=== PATIENT | female | born 1935 | race Caucasian/White ===

== ENCOUNTER 2019-03-22 12:29 | Inpatient (IN) ==
[2019-03-22] MEDS ORDERED: XANAX PO ONE (13:04)
[2019-03-22 13:30] LABS: BASO# 0.01 X1000 (0.0-0.2); BASO% 0.2 % (0.0-0.8); EOS% 4.3 % (0.0-10.0); HEMATOCRIT 33.8 % (37.0-47.0); HEMOGLOBIN 10.7 g/dL (12.0-16.0); IMM GRAN# 0.01 X1000 (0.0-0.04); IMM GRAN% 0.2 % (0.0-0.5); LYMPH# 1.61 X1000 (1.2-3.4); LYMPH% 34.6 % (20.5-51.1); MCH 30.6 PG (27-31); MCHC 31.7 g/dL (33-37); MCV 96.6 FL (81-99); MONO# 0.51 X1000 (0.11-0.59); MPV 10.9 FL (7.4-10.4); NEUT# 2.31 X1000 (1.4-6.5); NEUT% 49.7 % (42.2-75.2); PLT 274 X1000 (130-400); WBC 4.65 X1000 (4.8-10.8)
--- NOTE | 2019-03-22 13:32 | PROVIDER DOCUMENTATION ---
This chart was entered by Louisa Portillo Scribe, acting as scribe for Camilo Bell MD. HPI-Respiratory General - General Chief Complaint: Shortness of Breath Stated Complaint: DIFFICULTY BREATHING Time Seen by Provider: 03/22/19 12:50 Source: patient Allergies/Adverse Reactions: Patient Allergies Allergy/AdvReac Type Severity Reaction Status Date / Time albuterol Allergy Unknown Unknown Verified 03/22/19 13:30 ciprofloxacin [From Cipro] Allergy Unknown Unknown Verified 03/22/19 13:30 ciprofloxacin HCl * Allergy Unknown Unknown Verified 03/22/19 13:30 [From Cipro] corn [[place]] Allergy Unknown Unknown Verified 03/22/19 13:30 erythromycin base Allergy Unknown Unknown Verified 03/22/19 13:30 [Erythromycin Base] milk Allergy Unknown Unknown Verified 03/22/19 13:30 Sulfa (Sulfonamide Allergy Unknown Unknown Verified 03/22/19 13:30 Antibiotics) [Sulfa(Sulfonamide Antibiotics)] Home Medications: Home Medication List Medication Instructions Recorded Confirmed Last Taken Type Apixaban [Eliquis] 5 mg PO DAILY 03/22/19 03/22/19 Unknown History Metoprolol [Lopressor] 25 mg PO DAILY 03/22/19 03/22/19 Unknown History Paroxetine HCl [Paroxetine ER] 25 mg PO DAILY 03/22/19 03/22/19 Unknown History Pioglitazone HCl 30 mg PO DAILY 03/22/19 03/22/19 03/22/19 History - History of Present Illness-Resp Nature of Presenting Problem: 83 year old white female with history of dementia, CAD, diabetes, chronic atrial fibrillation (currently on Eloquis) who presents with her daughter complaining of worsening SOB with orthopnea for past week. Denies chest pain. Pt lives with daughter who thinks pt is experiencing panic attacks. Pt ambulates with a walker and is unable to bend knees due to severe arthritis. Pt's daughter states that pt is experiencing panic attacks due to daughter wanting her to travel to [place] for a few weeks. Pt is feeling anxiety over telling daughter that she does not want to travel due to bad health. Noted to have episodes of bradycardia in 30's and PVCs in emergency department. Quality of Pain: reports: tightness Onset/Duration: reports: gradual Timing: reports: still present Associated Symptoms: reports: shortness of breath Review of Systems - Adult - REVIEW OF SYSTEMS - ADULT Constitutional: denies: chills, fever Eyes: reports: no symptoms reported Ears, Nose, Mouth & Throat: reports: no symptoms reported Cardiovascular: reports: edema, orthopnea Respiratory: reports: shortness of breath. denies: cough, wheezing Gastrointestinal: reports: no symptoms reported Genitourinary: reports: no symptoms reported Musculoskeletal: reports: joint pain (knees), joint swelling (knees) Integumentary: reports: no symptoms reported Neurological: reports: no symptoms reported Psychiatric: reports: anxiety, other (dementia) Endocrine: reports: no symptoms reported Hematologic/Lymphatic: reports: no symptoms reported Allergic/Immunologic: reports: no symptoms reported All Other Systems: Reviewed and Negative Past History - Adult - PAST MEDICAL HISTORY-ADULT Review of Records: reports: Old Records Reviewed, Nursing Assessment Review, Medications Reviewed, Social history reviewed & non-contributory. Major Childhood Illnesses: reports: denies history Cardiovascular: reports: arrhythmia (chronic atrial fibrillation), HTN, hyperlipidemia, [place] Neurological: reports: CVA, dementia Endocrine/Immune: reports: Diabetes - PRIOR SURGERIES/PROCEDURES Surgical/Procedure History: reports: appendectomy, other (lumpectomy) - IMMUNIZATION STATUS Childhood Immunizations: See Nurse Assessment Flu Vaccine: See Nurse Assessment - SOCIAL HISTORY Smoking: denies Physical Exam-General - PHYSICAL EXAM-ADULT Initial Vital Signs Reviewed: Yes - CONSTITUTIONAL General Appearance: alert, mild distress - EYES Eyes: PERRL/EOMI, pink conjunctivae - HEAD, EARS, NOSE, MOUTH & THROAT HENMT: normocephalic/atraumatic, moist mucous membranes, normal ENT inspection - NECK Neck: non-tender, normal inspection - RESPIRATORY Respiratory: lungs clear - CARDIOVASCULAR Cardiovascular: normal peripheral pulses, irregularly irregular - GASTROINTESTINAL (ABDOMEN) Abdominal Exam: soft - MUSCULOSKELETAL Back Exam: no CVA tenderness, no vertebral tenderness, swelling Extremity: tenderness (knees) Peripheral Pulses: radial (R): 2+, radial (L): 2+ - SKIN Integumentary: normal color, warm/dry - NEUROLOGIC Neurologic: grossly normal, no motor/sensory deficits - PSYCHIATRIC Psych/Mental Status: oriented x 3, anxious, other (demented) Progress - PLAN OF CARE/RESULTS Progress/Plan/Lab Results: Vital Signs - 8 hr 03/22/19 12:36 03/22/19 14:00 Temperature 97.9 F Pulse Rate 103 H 84 Respiratory Rate 20 26 H Blood Pressure 132/083 166/97 O2 Sat by Pulse Oximetry 96 94 L Laboratory Results - last 24 hr 03/22/19 03/22/19 03/22/19 13:15 13:15 13:15 WBC 4.65 L RBC 3.50 L Hgb 10.7 L Hct 33.8 L MCV 96.6 MCH 30.6 MCHC 31.7 L RDW Std Deviation 15.0 H Plt Count 274 MPV 10.9 H Immature Gran % (Auto) 0.2 Neut % (Auto) 49.7 Lymph % (Auto) 34.6 [place] % (Auto) 11.0 H Eos % (Auto) 4.3 Baso % (Auto) 0.2 Immature Gran # (Auto) 0.01 Neut # (Auto) 2.31 Lymph # (Auto) 1.61 [place] # (Auto) 0.51 Eos # (Auto) 0.20 Baso # (Auto) 0.01 D-Dimer, Quantitative 0.56 H Sodium Potassium Chloride Carbon Dioxide Anion Gap BUN Creatinine Estimated GFR/1.73 m2 BUN/Creatinine Ratio Glucose Calculated Osmolality Calcium Magnesium Total Bilirubin AST ALT Alkaline Phosphatase Troponin T < 0.010 [id number] Pept Total Protein Albumin Globulin Albumin/Globulin Ratio 03/22/19 03/22/19 03/22/19 13:15 13:15 13:15 WBC RBC Hgb Hct MCV MCH MCHC RDW Std Deviation Plt Count MPV Immature Gran % (Auto) Neut % (Auto) Lymph % (Auto) [place] % (Auto) Eos % (Auto) Baso % (Auto) Immature Gran # (Auto) Neut # (Auto) Lymph # (Auto) [place] # (Auto) Eos # (Auto) Baso # (Auto) D-Dimer, Quantitative Sodium 142 Potassium 4.0 Chloride 105 Carbon Dioxide 26 Anion Gap 11 BUN 21 Creatinine 0.8 Estimated GFR/1.73 m2 > 60 BUN/Creatinine Ratio 26 Glucose 93 Calculated Osmolality 286 Calcium 8.7 L Magnesium 1.8 Total Bilirubin 0.50 AST 26 ALT 16 Alkaline Phosphatase 89 Troponin T [id number]-Zravpboafez Pept 3777 H Total Protein 7.0 Albumin 4.2 Globulin 3.0 Albumin/Globulin Ratio 2.0 Orders Category Date Time Status CHEST-1 VIEW [RAD] Stat Exams 03/22/19 13:05 Completed CTA [CT ANGIOGRM PULMONARY ARTERIES] [CT] Stat Exams 03/22/19 14:00 Completed BNP [PRO B-NATRIURETIC PEPTIDE] Stat Lab 03/22/19 13:15 Completed CBC WITH ELECTRONIC DIFF [HEME] Stat Lab 03/22/19 13:15 Completed CMP [COMPREHENSIVE METABOLIC PANEL] [CHEM] Stat Lab 03/22/19 13:15 Completed D-DIMER [COAG] Stat Lab 03/22/19 13:15 Completed MAGNESIUM [CHEM] Stat Lab 03/22/19 15:40 Uncollected TROPONIN T Stat Lab 03/22/19 13:15 Completed Alprazolam [Xanax] Med 03/22/19 13:04 Discontinued 0.5 mg PO NOW ONE Pulse Oximetry Stat Oth 03/22/19 13:08 Active EKG [EKG] Stat Ther 03/22/19 13:06 Draft EKG [EKG] Stat Ther 03/22/19 15:29 Draft Result Diagrams: 03/22/19 13:15 03/22/19 13:15 - EKG 1 Time of EKG reading by physician:: 14:02 EKG Read and Signed by:: Camilo Bell EKG Interpretation (*Must complete 3 of following elements*): Abnormal Rate: 83 Rhythm: atrial fibrillation with premature ventricular Comments: ST&T wave abnormality, consider lateral ischemia - XRAY 1 XRAY Study: Chest Impression: Abnormal, See EMR Report ( CHEST-1 VIEW - 03/22/2019 INDICATION: sob COMPARISON: 02/09/2015 FINDINGS: There is some infiltrate or atelectasis in the right middle lobe. Heart size is borderline enlarged. No pneumothorax or significant pleural effusion. IMPRESSION: Cardiomegaly. Infiltrate or atelectasis in the right middle lobe. Electronically signed by Brayan Kemp 03/22/2019 1:55 PM) XRAY Interpretation: per radiologist - CT/MRI 1 CT Study: Thorax CT Results: pulmonary edema, no PE Departure - Departure Date of Disposition Decision: 03/22/19 Time of Disposition Decision: 15:58 DIAGNOSIS: Ventricular ectopic activity, Bradycardia Pulmonary edema Qualifiers: Chronicity: acute Qualified Code(s): J81.0 - Acute pulmonary edema Disposition: ADMITTED INPATIENT 09 Certified Medical Emergency: Emergent Condition: Stable Referrals and Follow-Ups: Charles Ruelas MD [Primary Care Provider] - - Critical Care Note This patient required my direct & personal management of CC.: No Attestation - Physician/ NGHIA Attestation Patient care was provided by Advanced Practice Provider:: No The physician spent face to face time with patient:: Yes Advanced Practice Provider documentation review:: Supervising physician onsite and consulted in the evaluation and care of this patient. The physician did have a face to face encounter with the patient. This chart was documented by the indicated scribe, (Louisa Portillo Scribe) and accurately reflects the services I performed and decisions made by me, Camilo Bell MD, as attested by the provider's signature.
[2019-03-22 13:47] LABS: AGAP 11; BUN 21 mg/dL (8-22); CHLORIDE 105 mmol/L (98-107); COSMO 286; CREATININE 0.8 mg/dL (0.5-0.9); GLUCOSE 93 mg/dL (70-104); SODIUM 142 mmol/L (136-145); TCO2 26 mmol/L (25-35)
[2019-03-22 13:48] LABS: ALBUMIN 4.2 g/dL (3.5-5.0); ALKALINE PHOSPHATASE 89 U/L (32-104); CALCIUM 8.7 mg/dL (8.8-10.2); ESTIMATED GFR > 60; GOT 26 U/L (10-30); GPT 16 U/L (10-36)
--- NOTE | 2019-03-22 13:57 | Diag Imaging Result Doc PS360 ---
CHEST-1 VIEW - 03/22/2019 INDICATION: sob COMPARISON: 02/09/2015 FINDINGS: There is some infiltrate or atelectasis in the right middle lobe. Heart size is borderline enlarged. No pneumothorax or significant pleural effusion. IMPRESSION: Cardiomegaly. Infiltrate or atelectasis in the right middle lobe. Electronically signed by Brayan Kemp 03/22/2019 1:55 PM
--- NOTE | 2019-03-22 15:18 | Diag Imaging Result Doc PS360 ---
CT ANGIOGRM PULMONARY ARTERIES - 03/22/2019 INDICATION: sob TECHNIQUE: Axial CT images were obtained after administering intravenous contrast. Coronal MIP images were generated. COMPARISON: None FINDINGS: There is no pulmonary embolism. No adenopathy. There is a large hiatal hernia with essentially the entire stomach up in the chest. There is cardiomegaly. There is some hazy interstitial pulmonary edema diffusely. There are small bilateral pleural effusions. There are moderate degenerative changes of the spine. No acute or suspicious bony lesion. IMPRESSION: Negative for pulmonary embolism. Cardiomegaly, pulmonary edema, small pleural effusions. Large hiatal hernia. This exam was performed using automated exposure control, adjustment of mA or kV according to patient size, and/or use of iterative reconstruction technique Electronically signed by Brayan Kemp 03/22/2019 3:16 PM
--- NOTE | 2019-03-22 15:44 | EKG Report ---
Test Performed on : 03/22/2019 3:36:10 PM Test Reason : pain Blood Pressure : / mmHG Vent. Rate : 078 BPM Atrial Rate : 288 BPM P-R Int : 000 ms QRS Dur : 096 ms QT Int : 412 ms P-R-T Axes : 000 008 112 degrees QTc Int : 469 ms Atrial fibrillation. with premature ventricular or aberrantly conducted complexes. Nonspecific ST and T wave abnormality Abnormal ECG When compared with ECG of 22-MAR-2019 13:11, (Unconfirmed) No significant change was found Unconfirmed Result
--- NOTE | 2019-03-22 15:44 | EKG Report ---
Test Performed on : 03/22/2019 1:11:36 PM Test Reason : pain Blood Pressure : / mmHG Vent. Rate : 083 BPM Atrial Rate : 069 BPM P-R Int : 000 ms QRS Dur : 092 ms QT Int : 388 ms P-R-T Axes : 000 009 101 degrees QTc Int : 455 ms Atrial fibrillation. with premature ventricular or aberrantly conducted complexes. ST & T wave abnormality, consider lateral ischemia Abnormal ECG When compared with ECG of 20-MAY-2012 15:19, Atrial fibrillation. has replaced Sinus rhythm. T wave inversion now evident in Lateral leads Unconfirmed Result
--- NOTE | 2019-03-22 17:40 | HISTORY AND PHYSICAL ---
CHIEF COMPLAINT: Shortness of breath. HISTORY OF PRESENT ILLNESS: This is an 83-year-old female with a history of chronic atrial fibrillation on Eliquis, CAD, diabetes mellitus, dementia who presents to the emergency room complaining of shortness of breath and orthopnea for the past week. The patient states that she stopped taking her Lasix about 9 months ago because she was incontinent, and she actually urinated on her granddaughter's bed, and she stated humiliation was too much. Therefore, she refused the medicine. She reports persistent lower extremity edema, and on my exam she has pitting edema just about mid thigh down with peripheral pulses palpable. She has bad knees. She does have difficulty walking. She uses a walker but states over the last 2 to 3 weeks that walking has become extremely difficult secondary to shortness of breath. She was noted to have episodes of bradycardia in the 30s in the emergency room. She nor her daughter are aware of previous bradycardia. PAST MEDICAL HISTORY: Chronic atrial fibrillation on chronic anticoagulation, hypertension, hyperlipidemia, prior CVA, congestive heart failure, diabetes mellitus, hypertension, hyperlipidemia, dementia. PAST SURGICAL HISTORY: Appendectomy, hysterectomy, total knee replacement, lumpectomy. SOCIAL HISTORY: Denies alcohol, tobacco, or illicit drug use. She lives with her daughter who is active in her care. ALLERGIES: Cipro, albuterol, corn, erythromycin-based products, milk and sulfa, all with unknown reactions. HOME MEDICATIONS: Eliquis 5 mg p.o. daily, metoprolol succinate 25 mg p.o. daily, paroxetine 20 mg p.o. daily, Klonopin 0.5 p.o. b.i.d., pioglitazone 30 mg p.o. daily. REVIEW OF SYSTEMS: Discussed with patient and daughter with pertinent positives stated in the HPI. She denied any syncope or dizziness, any palpitations, any chest pain, any productive cough, fever, chills, night sweats, any nausea, vomiting, diarrhea, constipation, black or bloody vomitus or stools, any hematuria, dysuria, frequency, urgency. PHYSICAL EXAMINATION: GENERAL: This is an 83-year-old female who is lying in the bed in no distress. VITAL SIGNS: Blood pressure is 166/97, heart rates averaging 80 to 103. She did have a few episodes of bradycardia in the 30s per the ER physician report. O2 saturation are 94% to 96% on room air. EYES: Pupils equal, round, react to light. EOMs are intact. Sclerae are anicteric. HENT: Head is normocephalic, atraumatic. Mucous membranes are moist. NECK: Supple with trachea midline. CARDIOVASCULAR: Irregularly irregular rate and rhythm. S1 and S2 are appreciated. She has bilateral lower extremity edema, pitting from just midthigh down. Calves are nontender with peripheral pulses palpable x4 extremities. PULMONARY: Breath sounds are clear, diminished in the bases. Chest rises and falls symmetric with respiration. Chest wall is nontender to palpation. GASTROINTESTINAL: Abdomen is soft, nontender, nondistended with bowel sounds in all 4 quadrants. GENITOURINARY: She has no CVA or suprapubic tenderness. EXTREMITIES: She does have bilateral knee tenderness, which is chronic. SKIN: Warm and dry. NEUROLOGIC: She is alert and oriented. LABORATORY DATA: WBC is 4.6 with hemoglobin 10.7, hematocrit 33.8, platelets of 274,000. Sodium is 142, potassium 4, BUN 21, creatinine 0.8 with a glucose of 93. D-dimer 0.56. Chest x-ray reveals cardiomegaly with infiltrate or atelectasis in the right middle lobe. IMAGING: CTA pulmonary reveals negative for pulmonary embolism, cardiomegaly, pulmonary edema, small effusions and a large hiatal hernia. ASSESSMENT AND PLAN: 1. Shortness of breath. We will give supplemental oxygen as needed. We will restart the patient's Lasix. 2. Chronic atrial fibrillation, currently on Eliquis. We will continue her Eliquis. She will be placed on telemetry. We will hold her metoprolol right now as she was having heart rates down in the 30s in the emergency room. We will monitor. 3. History of coronary artery disease, aware. 4. Diabetes mellitus. We will continue her home medications place her on pattern blood glucose with sliding scale insulin. 5. Hypertension. We will monitor vital signs. 6. Elevated D-dimer: CTA pulmonary was negative. The patient is on Eliquis. Due to the symptoms and elevated D-dimer, we will go ahead and order a lower extremity Doppler as the patient is sedentary. 7. History of dementia aware. 8. Gastroesophageal reflux disease with a large hiatal hernia. Start Prilosec. 9. Right middle lobe infiltrate per chest x-ray. As the patient has had increasing shortness of breath and cough, we will start antibiotic coverage of Rocephin. Further treatments pending hospital course and discussion with Dr. Evans. Dictated by ELENA Lea for Desmond Evans MD cc: ELENA Lea MD [facility]
[2019-03-22] MEDS ORDERED: ROCEPHIN 1 GM in NS 50 ML IV SCH (17:41)
[2019-03-22] MEDS: LASIX IV SCH (20:00)
--- NOTE | 2019-03-22 20:12 | HISTORY AND PHYSICAL ---
HISTORY AND PHYSICAL - ADDENDUM: Patient seen and examined by myself. Full note dictated and discussed with nurse practitioner. She has a known history of atrial fibrillation, congestive heart failure. She has not been taking her Lasix. She is complaining of pain and shortness of breath. We will admit her to the hospital with congestive heart failure exacerbation, place her on Lasix and will follow. cc: Desmond Evans MD MTDD
[2019-03-22] MEDS: HUMALOG SUBQ SCH (21:43)
[2019-03-23 06:23] LABS: BASO# 0.02 X1000 (0.0-0.2); BASO% 0.3 % (0.0-0.8); EOS# 0.22 X1000 (0.0-0.7); EOS% 3.7 % (0.0-10.0); HEMATOCRIT 34.8 % (37.0-47.0); HEMOGLOBIN 10.9 g/dL (12.0-16.0); IMM GRAN# 0.01 X1000 (0.0-0.04); IMM GRAN% 0.2 % (0.0-0.5); LYMPH# 1.95 X1000 (1.2-3.4); LYMPH% 32.6 % (20.5-51.1); MCH 30.1 PG (27-31); MCHC 31.3 g/dL (33-37); MCV 96.1 FL (81-99); MONO# 0.53 X1000 (0.11-0.59); MONO% 8.9 % (1.7-9.3); MPV 11.1 FL (7.4-10.4); NEUT# 3.25 X1000 (1.4-6.5); NEUT% 54.3 % (42.2-75.2); PLT 276 X1000 (130-400); RBC 3.62 XMIL (4.2-5.4); RDW 14.8 % (11.5-14.5); WBC 5.98 X1000 (4.8-10.8)
[2019-03-23 06:41] LABS: AGAP 13; ALBUMIN 3.9 g/dL (3.5-5.0); ALKALINE PHOSPHATASE 93 U/L (32-104); BUN 21 mg/dL (8-22); CALCIUM 8.7 mg/dL (8.8-10.2); CHLORIDE 102 mmol/L (98-107); COSMO 284; CREATININE 0.7 mg/dL (0.5-0.9); ESTIMATED GFR > 60; GLUCOSE 103 mg/dL (70-104); GOT 37 U/L (10-30); GPT 27 U/L (10-36); POTASSIUM 3.7 mmol/L (3.5-5.1); SODIUM 141 mmol/L (136-145); TCO2 26 mmol/L (25-35); TOTAL PROTEIN 7.1 g/dL (6.3-8.3)
[2019-03-23] MEDS ORDERED: PRILOSEC PO SCH (07:00)
[2019-03-23] MEDS: HUMALOG SUBQ SCH (07:07)
[2019-03-23] MEDS: LASIX IV SCH ×2 (08:01→22:48)
[2019-03-23] MEDS: ELIQUIS PO SCH (08:01)
[2019-03-23] MEDS: ACTOS PO SCH (08:01)
--- NOTE | 2019-03-23 08:37 | Extremity Venous Study ---
EXAM: Venous U/S Bilateral Legs HISTORY: Elevated ddimer TECHNIQUE: Bilateral lower extremity venous Doppler ultrasound COMPARISON: None. FINDINGS: Right: There is good flow and compressibility of the veins of the right lower extremity. No thrombus. Left: There is good flow and compressibility of the veins of the left lower extremity. No thrombus. IMPRESSION: No evidence of deep venous thrombosis within either lower extremity. Electronically signed by Hugo Salas 03/23/2019 8:35 AM
[2019-03-23] MEDS ORDERED: PAXIL PO SCH (09:00)
[2019-03-23] MEDS ORDERED: PAROXETINE HCL 25 MG PO SCH (09:00)
[2019-03-23] MEDS: ROCEPHIN 2 GM in NS 50 ML IV SCH (12:52)
--- NOTE | 2019-03-23 14:04 | PROGRESS NOTE ---
DATE: 03/23/2019 SUBJECTIVE: The patient reports breathing better. Denies any chest pain or chest discomfort. OBJECTIVE: Vital Signs: Temperature 98.2 degrees, heart rate 80, respiratory rate 20, blood pressure 139/76, O2 saturation 98% 2 L nasal cannula. General Examination: This is a chronically ill-appearing 83-year-old female lying in bed, in no acute distress. Cardiac: S1 S2 heard. No murmurs, gallops or rubs. Regular rate and rhythm. Respiratory: Coarse breath sounds in both pulmonary bases. Patient is not using any accessory muscles or having work of breathing. Abdomen: Soft. Nontender to palpation. Bowel sounds present. No organomegaly. Extremities: No clubbing, cyanosis. Mild edema in both lower extremities. Neurological: Patient is alert and oriented x3. Moves 4 extremities. LABORATORY DATA: Reviewed. ASSESSMENT AND PLAN: 1. Acute respiratory failure secondary to congestive heart failure exacerbation. Unfortunately, this patient stopped using Lasix because she was urinating a lot and having some sort of urinary incontinence. The patient is back on that medication. She reports breathing better. At this point, we are going to continue with the same management. I think this patient will be here for the next 24 to 48 hours. 2. Chronic atrial fibrillation. Patient is on Eliquis and metoprolol, but because the heart rate has been found very low in the 30s and 40s, we have held that medication. So, at this point, I will continue to hold them. 3. History of coronary artery disease. Aware. 4. Diabetes mellitus type 2. We will continue with sliding scale insulin, Accu-Chek before meals and also at bedtime. 5. Hypertension. Blood pressure is under control. We will continue with the same management. 6. Gastroesophageal reflux disease. We will continue with Prilosec. 7. Right middle lobe pneumonia. We will continue with Rocephin. 8. Disposition. We will continue to monitor this patient closely. We can anticipate this patient will be discharged in the next 24 to 48 hours. cc: Jeffrey Cabrera MD
[2019-03-23] MEDS ORDERED: KLONOPIN PO ONE (14:50)
[2019-03-23] MEDS: HUMALOG (PARKWAY) SUBQ SCH ×2 (17:05→22:53)
[2019-03-23] MEDS: KLONOPIN PO SCH (22:49)
[2019-03-24] MEDS: HUMALOG (PARKWAY) SUBQ SCH ×4 (07:20→21:30)
[2019-03-24] MEDS: KLONOPIN PO SCH ×3 (09:20→21:31)
[2019-03-24] MEDS: ACTOS PO SCH (09:21)
[2019-03-24] MEDS: ELIQUIS PO SCH (09:21)
[2019-03-24] MEDS: ROCEPHIN 2 GM in NS 50 ML IV SCH (13:48)
--- NOTE | 2019-03-24 15:44 | PROGRESS NOTE ---
DATE: 03/24/2019 SUBJECTIVE: Patient reports feeling okay. Breathing definitely is much better. Denies any fever or chills. OBJECTIVE: Vital Signs: Temperature 97.5 degrees, heart rate 94, respiratory rate 18, blood pressure 126/60, and O2 saturation 98% on room air. General: This is a chronically ill-appearing 83-year-old female lying in bed in no acute distress. Cardiovascular: S1, S2 heard. No murmurs, gallops, or rubs. Regular rate and rhythm. Respiratory: Coarse breath sounds noted in both pulmonary bases. Patient not using any accessory muscles or having work of breathing. Abdomen: Soft. Nontender to palpation. Bowel sounds present. No organomegaly. Extremities: No clubbing, cyanosis, or edema. Mild lower extremity noted. Neurological: Patient alert and oriented x3. Moves 4 extremities. LABORATORY DATA: Reviewed. ASSESSMENT AND PLAN: 1. Acute respiratory failure secondary to congestive heart failure exacerbation. We have restarted Lasix since admission. Now, patient is doing much better and breathing better. I think she is doing good progress so I am going to keep her with 24 more hours of Lasix IV. If she is not complaining of any shortness of breath and is back to room air, I think we can discharge her tomorrow. 2. Chronic atrial fibrillation. The patient is on Eliquis, and metoprolol has been held because of low heart rate. The heart rate is getting a little bit higher. We will continue to monitor this patient without any Toprol, and that started to go up again. Then, we will restart it. 3. History of coronary artery disease. Aware. 4. Diabetes mellitus type 2. We will continue with sliding scale insulin. Accu-Chek before meals and also at bedtime. 5. Hypertension. Blood pressure is under control. We will continue with the same management. 6. Gastroesophageal reflux disease. We will continue with Prilosec. 7. Right middle lobe pneumonia. We will continue with Rocephin. 8. Disposition: I think this patient is doing much better. Tomorrow we can discharge her with oral antibiotics and Lasix. cc: MD JACOB Hale
--- NOTE | 2019-03-24 19:28 | ECHO REPORT ---
ORDER DATE: 03/24/2019 INTERPRETING PHYSICIAN: Dr. Deni Arita. CLINICAL INDICATIONS: An 83-year-old female with chronic atrial fibrillation and pneumonia. M-MODE MEASUREMENTS: Left ventricle end diastole: 5.3 cm. Left ventricle end systole: 3.4 cm. Posterior wall: 1.1 cm. Interventricular septum: 1.2 cm. Left atrium: 5.7 cm. Aortic diameter: 2.6 cm. SUMMARY OF 2-DIMENSIONAL IMAGIN. The left ventricular function is normal. Ejection fraction of 59%. No wall motion abnormality is noted. The cardiac cycles are irregular. The patient is in atrial fibrillation. 2. The left atrium is markedly dilated. 3. The right atrium is also moderately dilated. 4. The aortic valve has three cusps. They open normally. Color flow mapping unremarkable. 5. The pulmonic valve looks normal. Color flow mapping unremarkable. 6. The tricuspid valve shows mild degree of regurgitation. 7. Pulmonary pressure is estimated at 36 to 41 mmHg. Pulmonic valve is unremarkable. 8. The mitral valve shows just a mild degree of regurgitation. 9. The pulsed wave Doppler of mitral inflow shows single filling wave. 10.Diastolic function cannot be properly evaluated because the patient is in atrial fibrillation. 11.There is no pericardial effusion, mass, and no thrombus. CONCLUSIONS: In summary, this study shows 1. Normal left ventricular systolic function. 2. Mild degree of mitral and tricuspid regurgitation. 3. Markedly enlarged left atrium. 4. Pulmonary pressure at 36 mmHg. 5. Unremarkable aortic valve. 6. No pericardial effusion. Clinical correlation is recommended. cc: MD Jeffrey Mccord MD
[2019-03-25 06:12] VITALS: BP 184/87
[2019-03-25] MEDS: HUMALOG (PARKWAY) SUBQ SCH ×2 (06:40→11:05)
[2019-03-25 06:45] LABS: BASO# 0.01 X1000 (0.0-0.2); BASO% 0.2 % (0.0-0.8); EOS# 0.26 X1000 (0.0-0.7); EOS% 5.7 % (0.0-10.0); HEMATOCRIT 32.6 % (37.0-47.0); HEMOGLOBIN 10.4 g/dL (12.0-16.0); LYMPH# 1.71 X1000 (1.2-3.4); LYMPH% 37.2 % (20.5-51.1); MCH 30.4 PG (27-31); MCHC 31.9 g/dL (33-37); MCV 95.3 FL (81-99); MONO# 0.54 X1000 (0.11-0.59); MONO% 11.7 % (1.7-9.3); NEUT# 2.08 X1000 (1.4-6.5); NEUT% 45.2 % (42.2-75.2); PLT 257 X1000 (130-400); RBC 3.42 XMIL (4.2-5.4); RDW 14.9 % (11.5-14.5)
[2019-03-25 06:48] LABS: AGAP 11; BUN 31 mg/dL (8-22); CALCIUM 8.6 mg/dL (8.8-10.2); CHLORIDE 101 mmol/L (98-107); COSMO 286; CREATININE 0.7 mg/dL (0.5-0.9); ESTIMATED GFR > 60; GLUCOSE 98 mg/dL (70-104); POTASSIUM 3.6 mmol/L (3.5-5.1); SODIUM 140 mmol/L (136-145); TCO2 27 mmol/L (25-35)
[2019-03-25] MEDS: ELIQUIS PO SCH (09:39)
[2019-03-25] MEDS: KLONOPIN PO SCH ×2 (09:39→12:13)
[2019-03-25] MEDS: ACTOS PO SCH (09:39)
--- NOTE | 2019-03-26 21:26 | DISCHARGE SUMMARY ---
ADMISSION DATE: 03/22/2019 DISCHARGE DATE: 03/25/2019 PRIMARY CARE PHYSICIAN: Dr. Charles Ruelas. ADMISSION DIAGNOSES: 1. Shortness of breath. 2. Chronic atrial fibrillation on Eliquis. 3. Diabetes. 4. Hypertension. 5. A right middle lobe infiltrate per chest x-ray. 6. Elevated D-dimer, ruled out for pulmonary embolus by CTA pulmonary. 7. History of coronary artery disease, aware. DISCHARGE DIAGNOSES: 1. Shortness of breath, resolved. 2. Right middle lobe pneumonia, improved. 3. Chronic atrial fibrillation on chronic anticoagulation. 4. Diabetes. 5. Hypertension. 6. History of dementia, aware. SUMMARY OF FINDINGS: This is an 83-year-old female who presented to the emergency room with complaints of shortness of breath and orthopnea for the past week. Stated she stopped her Lasix about 9 months ago because it was causing incontinence and that she actually urinated on her granddaughter's bed and she stated humiliation was too much. Therefore, she refused the medicine. She reports persistent lower extremity edema and on exam has pitting edema about mid thigh down to the peripheral pulses that are palpable. She has difficulty walking and uses a walker, but that has become more difficult secondary to her shortness of breath. She was also noted to have episodes of bradycardia in the 30s in the emergency room and does not have a history of previous bradycardia. She was admitted and placed on IV antibiotics. We did start her on supplemental O2 and back on her Lasix. Her heart rate was never bradycardic during this admission; stayed in the 80s and 90s. She responded well to her IV antibiotics and breathing treatments, and it is now felt that she can safely be discharged home. DISCHARGE MEDICATIONS: Eliquis 5 mg p.o. daily, Klonopin 0.5 mg p.o. t.i.d. #60 with no refills, Lasix 40 mg p.o. daily #90 with 1 refill, metoprolol 25 mg p.o. daily, paroxetine 20 mg p.o. daily, and pioglitazone 30 mg p.o. daily. FOLLOWUP: She will need to follow up with her primary care physician in the next 1 to 2 weeks. Call their office for an appointment. TIME SPENT WITH PATIENT: This a 33 minute discharge for Sharon Shea. Dictated by ELENA Lockhart for Jeffrey Cabrera MD Addendum: Patient seen and examined by myself. Agree with ELENA note. It reflects my assessment and plan. Patient is being discharged in stable condition. Will be seen by PCP in one to two weeks. cc: ELENA Lockhart MD Wayne E. Thomas, MD [facility]PITALMarta
== END 2019-03-25 12:38 | disposition home or self-care (01) | DRG 291 ==
LOC: P.ED 12:29 → P.MEDSURG 16:57 → SUATTDRO 16:57
PROVIDERS: ATTEND Internal Medicine
CPT/HCPCS: 71010; 71045; 71275; 80048; 80053; 82948; 83735; 83880; 84484; 85025; 85379; 87040; 93005; 93306; 93970; 94761; 94799; 99285; A9270; J0696; J1815; J1940; Q9967; XXXXX